=== PATIENT | female | born 1960 | race Caucasian/White ===

== ENCOUNTER 2017-08-02 02:57 | Emergency (ER) ==
[2017-08-02 03:04] VITALS: BP 147/91; TEMP 97.8; BMI 42.4
[2017-08-02] MEDS ORDERED: PHENERGAN 25 MG/ML VIAL IM STA (03:20)
[2017-08-02] MEDS ORDERED: DEMEROL 50 MG/ML SYRINGE IM STA (03:20)
--- NOTE | 2017-08-02 03:20 | ED.PDOC ---
General ED Provider: Dr. DIAN TAVERAS Chief Complaint: Back Pain Stated Complaint: Pateint is a 57 year old who comes to the Er with C/O of right mid back pain. That started yeterday. Denies any Trauma. Time Seen by Physician: 03:17 Mode of Arrival: Walk-In Information Source: Patient Exam Limitations: No limitations Nursing and Triage Documentation Reviewed and Agree: Yes Musculoskeletal Complaint Exam - Back Pain Complaint/Exam Mechanism of Injury: Reports: No known trauma Onset/Duration: 1 day Symptoms Are: Still present Timing: Constant Episodes Lasting: Hours Initial Severity: Moderate Current Severity: Moderate Location: Reports: Diffuse (Right mid back ) Character: Reports: Aching, Throbbing Aggravating: Reports: Movements, Lifting, Bending, Walking Alleviating: Reports: None Associated Signs and Symptoms: Reports: Flank pain Related History: Denies: Similar episode, Occupational injury, Previous back injury TAD Risk Factors: Reports: None AAA Risk Factors: Reports: None Cauda Equina Risk Factors: Reports: None Epidural Abcess Risk Factors: Reports: None Related Surgical History: Reports: None Focal Tenderness: Yes Paraspinal Muscle Tenderness: Yes (Right ) Paraspinal Muscle Spasm: Yes (Right) Scoliosis: No Lordosis: No Kyphosis: No SLR Test: Right Negative, Left Negative Hip Motion Testing Pain: Right Negative, Left Negative Focal Weakness: Present: None Focal Sensory Loss: Present: None Gait: Present: Normal Back Picture: 1 - Tenderness to palpation with no radiation Differential Diagnoses: Renal Colic, Strain, Sprain, Other (pyelonephritis ) Review of Systems - Review Of Systems Constitutional: Reports: No symptoms Eyes: Reports: No symptoms Ears, Nose, Mouth, Throat: Reports: No symptoms Respiratory: Reports: No symptoms Cardiac: Reports: No symptoms GI: Reports: No symptoms : Reports: No symptoms Musculoskeletal: Reports: Back pain Skin: Reports: No symptoms Neurological: Reports: No symptoms Endocrine: Reports: No symptoms Hematologic/Lymphatic: Reports: No symptoms All Other Systems: Reviewed and Negative Past Medical History - Past Medical History Endocrine: Reports: DM 2 Cardiovascular: Reports: Hypertension Respiratory: Reports: None Hematological: Reports: None Gastrointestinal: Reports: None Genitourinary: Reports: None Neuro/Psych: Reports: TIA, Other (bells pulsey ) Musculoskeletal: Reports: None Cancer: Reports: None Last Menstrual Period: SEVERAL YEARS Other Pertinent Past Medical History: obesity - Surgical History General Surgical History: Reports: Hysterectomy (parital ) - Family History Family History: Reports: Unknown - Social History Smoking Status: Former smoker Hx Substance Use: No Alcohol Screening: None - Immunizations Tetanus Shot up to Date: Yes Physical Exam - Physical Exam Appearance: Ill-appearing, Obese Pain Distress: Severe Neck: Supple Respiratory: Airway patent Cardiovascular: RRR, Pulses normal, No rub, No murmur GI/: Soft, Nontender, No masses, Bowel sounds normal, No Organomegaly Musculoskeletal: Limited ROM Skin: Warm Neurological: Sensation intact Psychiatric: Affect appropriate Interpretation - Radiology Interpretation Radiology Interpretation By: Radiologist Radiology Results: Negative Exam Interpreted: CT Scan (Abdomen and pelvis ) Critical Care Note - Critical Care Note Total Time (mins): 0 Course - Course Hematology/Chemistry: 08/02/17 03:40 08/02/17 03:40 Orders, Labs, Meds: Lab Review 08/02/17 08/02/17 08/02/17 03:25 03:40 04:30 WBC 7.79 RBC 4.35 Hgb 12.4 Hct 37.8 MCV 86.9 MCH 28.5 MCHC 32.8 RDW Coeff of Benigno 12.8 Plt Count 257 Immature Gran % (Auto) 0.4 Neut % (Auto) 57.1 Lymph % (Auto) 30.9 [place] % (Auto) 8.6 Eos % (Auto) 2.4 Baso % (Auto) 0.6 Immature Gran # (Auto) 0.0 Neut # 4.4 Lymph # 2.4 [place] # 0.7 Eos # 0.2 Baso # 0.1 D-Dimer (Manual) 382.97 Sodium 142 Potassium 3.7 Chloride 105 Carbon Dioxide 26 Anion Gap 14.7 BUN 15 Creatinine 0.99 Estimated GFR (MDRD) 58.00 BUN/Creatinine Ratio 15.15 Glucose 145 H Calcium 9.3 Total Bilirubin 0.39 AST 17 ALT 18 Alkaline Phosphatase 73 Total Protein 7.4 Albumin 3.8 Globulin 3.6 Albumin/Globulin Ratio 1.06 Amylase 59 Lipase 47 Urine Color Yellow Urine Clarity Clear Urine pH 6.0 Ur Specific [place] 1.010 Urine Protein Negative Urine Glucose (UA) Negative Urine Ketones Negative Urine Blood Trace-intact Urine Nitrite Negative Urine Bilirubin Negative Urine Urobilinogen 0.2 Ur Leukocyte Esterase 1+ Urine Microscopic WBC 5-10 Ur Squamous Epith Cells Not present Urine Bacteria Trace Orders Category Date Time Status AMYLASE Stat LAB 08/02/17 03:40 Completed CBC W/ AUTO DIFF Stat LAB 08/02/17 03:40 Completed COMPREHENSIVE METABOLIC PANEL Stat LAB 08/02/17 03:40 Completed D-DIMER Stat LAB 08/02/17 04:30 Completed LIPASE Stat LAB 08/02/17 03:40 Completed URINALYSIS C & S IF INDICATED Stat LAB 08/02/17 03:25 Completed URINE CULTURE Routine LAB 08/02/17 03:44 Received Ketorolac Tromethamine [Toradol] MEDS 08/02/17 04:15 Discontinued 60 mg IM ONCE STA Levofloxacin [Levaquin] MEDS 08/02/17 04:15 Discontinued 500 mg PO ONCE STA Meperidine HCl/Pf [Demerol 50 mg/ml Syringe] MEDS 08/02/17 03:20 Discontinued 50 mg IM ONCE STA Promethazine HCl [Phenergan 25 mg/ml Vial] MEDS 08/02/17 03:20 Discontinued 25 mg IM ONCE STA CT ABD/PEL WO RENAL STONE PROT Stat RADS 08/02/17 03:26 Completed Medications Discontinued Medications Generic Name Dose Route Start Last Admin Trade Name Milagro PRN Reason Stop Dose Admin Ketorolac Tromethamine 60 mg 08/02/17 04:15 08/02/17 04:23 Toradol IM 08/02/17 04:16 60 mg ONCE STA Administration Levofloxacin 500 mg 08/02/17 04:15 08/02/17 04:23 Levaquin PO 08/02/17 04:16 500 mg ONCE STA Administration Meperidine HCl 50 mg 08/02/17 03:20 08/02/17 03:31 Demerol 50 Mg/Ml Syringe IM 08/02/17 03:21 50 mg ONCE STA Administration Promethazine HCl 25 mg 08/02/17 03:20 08/02/17 03:32 Phenergan 25 Mg/Ml Vial IM 08/02/17 03:21 25 mg ONCE STA Administration Vital Signs: Temp Pulse Resp BP Pulse Ox 08/02/17 02:58 97.8 F 70 22 147/91 H 98 Departure - Departure Time of Disposition: 04:16 Disposition: HOME SELF-CARE Discharge Problem: Backache, UTI (urinary tract infection) Instructions: Urinary Tract Infection in Women (ED), Back Pain (ED) Condition: Fair Pt referred to PMD for follow-up: Yes Additional Instructions: Take medications as prescribed Follow up with PC in 3 days. Prescriptions: Hydrocodone/Acetaminophen [[place] 5-325 Tablet] 1 tab PO Q6HR PRN #12 tablet PRN Reason: PAIN Levofloxacin [Levaquin] 500 mg PO DAILY #7 tablet Allergies/Adverse Reactions: Allergies No Known Allergies Allergy (Unverified 08/02/17 03:04) Home Medications: Ambulatory Orders Aspirin [Aspir-Low] 81 mg PO DAILY 08/02/17 Atorvastatin Calcium [Lipitor] 20 mg PO DAILY 08/02/17 Calcium Carbonate/Vitamin D3 [Calcium 500+D Tablet Chew] 1 each PO DAILY Clopidogrel Bisulfate [Clopidogrel] 75 mg PO DAILY 08/02/17 Fluoxetine HCl 40 mg PO DAILY 08/02/17 Hydrocodone/Acetaminophen [[place] 5-325 Tablet] 1 tab PO Q6HR PRN #12 tablet 07/11 Levofloxacin [Levaquin] 500 mg PO DAILY #7 tablet 08/02/17 Levothyroxine Sodium [Levo-T] 50 mcg PO DAILY 08/02/17 Losartan Potassium [Cozaar] 50 mg PO DAILY 08/02/17 Losartan/Hydrochlorothiazide [Losartan-Hctz 100-25 mg Tab] 100 each PO DAILY 07/11 Modafinil [Provigil] 200 mg PO DAILY 08/02/17 Multivitamin [Multi-Vitamin Daily] 1 tab PO DAILY 08/02/17 Sitagliptin Phos/Metformin HCl [Janumet Xr 50-1,000 mg Tablet] 1 each PO DAILY 08/02/17 Disposition Discussed With: Patient, Family
[2017-08-02 03:30] LABS: ADD URINE MICROSCOPIC YES; BILIRUBIN,URINE Negative (NEGATIVE); KETONES,URINE Negative (NEGATIVE); LEUKOCYTE ESTERASE ,URINE 1+ (NEGATIVE); NITRITE,URINE Negative (NEGATIVE); PROTEIN,URINE Negative (NEGATIVE); URINE, BLOOD Trace-intact (NEGATIVE)
[2017-08-02 03:43] LABS: BASOPHILS # (AUTO) 0.1 K/uL (0-0.2); BASOPHILS % (AUTO) 0.6 % (0.0-3.0); EOSINOPHILS # (AUTO) 0.2 K/ul (0.0-0.7); EOSINOPHILS % (AUTO) 2.4 % (0.0-7.0); HEMATOCRIT 37.8 % (37.0-47.0); HEMOGLOBIN 12.4 g/dl (12.0-16.0); IMMATURE GRANULOCYTE % (AUTO) 0.4 % (0.0-5.0); LYMPHOCYTES # (AUTO) 2.4 K/uL (0.60-3.4); LYMPHOCYTES % (AUTO) 30.9 (10.0-50.0); MEAN CORPUSCULAR HEMOGLOBIN 28.5 pg (27.0-31.0); MEAN CORPUSCULAR HGB CONC 32.8 (31.8-35.4); MEAN CORPUSCULAR VOLUME 86.9 fl (81.0-99.0); MONOCYTES # (AUTO) 0.7 K/uL (0.4-2.0); MONOCYTES % (AUTO) 8.6 (0-10); NEUTROPHILS # (AUTO) 4.4 K/ul (2.0-6.9); NEUTROPHILS % (AUTO) 57.1; PLATELET COUNT 257 10^3/uL (140-440); RED BLOOD COUNT 4.35 10^6/ul (4.20-5.40); WHITE BLOOD COUNT 7.79 K/ul (4.6-10.2)
[2017-08-02 03:44] LABS: BACTERIA,URINE TRACE (NOT PRESENT)
[2017-08-02 04:03] LABS: ALBUMIN 3.8 g/dL (3.4-5.0); ALBUMIN/GLOBULIN RATIO 1.06; ANION GAP 14.7; BILIRUBIN,TOTAL 0.39 mg/dL (0.00-1.20); BUN/CREATININE RATIO 15.15; CALCIUM 9.3 mg/dL (8.2-10.2); CREATININE 0.99 mg/dL (0.60-1.30); POTASSIUM 3.7 mmol/L (3.5-5.10); TOTAL PROTEIN 7.4 g/dL (6.4-8.2)
--- NOTE | 2017-08-02 04:09 | CT ---
EXAM: CT of the abdomen and pelvis without contrast. HISTORY: Right flank pain. PROCEDURE: Contiguous axial CT images of the abdomen and pelvis without contrast with coronal and s agittal reformats. FINDINGS: The liver, gallbladder, pancreas, spleen and adrenal glands are normal in appearance. Ther e are fluid density cysts in both kidneys. No nephrolithiasis, ureterolithiasis or hydronephrosis. The abdominal aorta is within normal limits in diameter. The visualized loops of bowel and appendix are normal in appearance. No free fluid or free air in the abdomen or pelvis. The bladder is minim ally filled which limits the evaluation. The uterus is surgically absent. There are degenerative ch anges in the spine. Impression: No nephrolithiasis, ureterolithiasis or hydronephrosis. Simple bilateral renal cysts. Hysterectomy.
[2017-08-02] MEDS ORDERED: TORADOL IM STA (04:15)
[2017-08-02] MEDS ORDERED: LEVAQUIN PO STA (04:15)
== END 2017-08-02 04:59 | disposition home or self-care (01) ==
LOC: ED 02:57
DX: N39.0 Urinary tract infection, site not specified (principal); M54.9 Dorsalgia, unspecified; E11.9 Type 2 diabetes mellitus without complications; I10 Essential (primary) hypertension; Z86.73 Personal history of transient ischemic attack (TIA), and cerebral infarction without residual deficits
CPT/HCPCS: 36415; 74176; 80053; 81001; 82150; 83690; 85025; 85379; 87086; 96372; 99283